=== PATIENT | female | born 1975 | race Caucasian/White ===

== ENCOUNTER 2018-12-10 10:12 | Emergency (ER) | payer BC ==
[~2018-12-10] VITALS: Ht 185.4 cm; Wt 77.1 kg
[2018-12-10 10:36] LABS: ABSOLUTE NEUTROPHILS 3.3 thou/uL (1.4-8.2); BASOPHILS 1.5 % (0.0-2.0); EOSINOPHILS 2.2 % (0.0-3.0); HEMATOCRIT 33.9 % (37.0-47.0); HEMOGLOBIN 11.5 gm/dL (12.0-15.0); LYMPHOCYTES 25.8 % (24.0-44.0); MCH 30.7 pg (26.0-34.0); MCV 90.1 fL (80.0-100.0); MONOCYTES 5.8 % (1.0-8.0); PLATELET COUNT 204 thou/uL (150-400); POLYS 64.7 % (36.0-66.0); RBC 3.77 mil/uL (4.20-5.00); RDW 13.9 % (10.5-14.5); WBC 5.2 thou/uL (4.0-11.0)
[2018-12-10 10:55] LABS: ANION GAP 11 mmol/L (7-16); BUN 10 mg/dL (7-18); CHLORIDE 101 mmol/L (98-107); CO2 26 mmol/L (21-32); CREATININE 0.8 mg/dL (0.6-1.0); GLUCOSE 108 mg/dL (74-106); POTASSIUM 3.6 mmol/L (3.5-5.1); SODIUM 138 mmol/L (136-145)
[2018-12-10 11:04] LABS: ALBUMIN 4.5 g/dL (3.4-5.0); LIPASE 160 U/L (73-393); SGOT 16 U/L (15-37); SGPT 16 U/L (30-65); TOTAL BILIRUBIN 0.3 mg/dL (<0.1-1.0); TOTAL PROTEIN 7.9 g/dL (6.4-8.2); TROPONIN-I <0.06 ng/mL (<0.06)
[2018-12-10 11:23] LABS: URINE BILIRUBIN NEGATIVE (Negative); URINE BLOOD 3+ (Negative); URINE CLARITY CLOUDY; URINE COLOR YELLOW; URINE GLUCOSE-RANDOM* NEGATIVE (Negative); URINE KETONES NEGATIVE (Negative); URINE LEUKOCYTES-REFLEX TRACE (Negative); URINE NITRITE-REFLEX NEGATIVE (Negative); URINE PROTEIN (DIPSTICK) TRACE (Negative); URINE UROBILINOGEN 0.2 E.U./dl (0.2-1.0)
[2018-12-10 11:32] LABS: BACTERIA-REFLEX 1-9 Few /HPF (None Seen); CASTS None Seen /LPF (None Seen); CRYSTALS None Seen /LPF (None Seen); SQUAMOUS 0-3 Few /LPF (0-3); URINE RBC >20 Many /HPF (0-2); URINE WBC-REFLEX 6-15 Few /HPF (0-5)
[2018-12-10] MEDS ORDERED: SYNTHROID25 MC1 PO (11:33)
[2018-12-10 12:52] VITALS: BP 94/67
--- NOTE | 2018-12-10 13:59 | EKG ---
[address] [address] [facility] [place] [address] ELECTROCARDIOGRAM REPORT Name: PAVAN SANTOS [id number] Admission: 12/10/18 Attend Phys: Discharge: 12/10/18 Date of : 75 Report #: [id number] THIS REPORT FOR: //name// [facility] ED Test Date: 2018-12-10 Test Time: 10:25:14 Pat Name: PAVAN SANTOS Department: Room: Gender: F [employer]: [place] : 1975 Requested By: Adrián Albarran Order Number: [id number] MD: Scout Gibson Measurements Intervals [place] Rate: 78 P: [place]: QRS: 54 QRSD: 101 T: -9 QT: 470 QTc: 536 Interpretive Statements Sinus rhythm. Artifact noted in multiple lead, likely motion. No previous ECG available for comparison Electronically Signed On 12-10-2018 13:59:03 MINT MACHINE OPERATOR by Scout Gibson [email or web address] <ELECTRONICALLY SIGNED> By: Scout Gibson MD 12/10/18 1359 1025 1025 MD TANYA Bond
--- NOTE | 2018-12-10 17:09 | EKG ---
[address] [address] [facility] [place] [address] ELECTROCARDIOGRAM REPORT Name: PAVAN SANTOS Room #: [facility] [place])Genia#: [id number] Admission: 12/10/18 Attend Phys: Discharge: 12/10/18 Date of : 75 Report #: [id number] THIS REPORT FOR: //name// [facility] ED Test Date: 2018-12-10 Test Time: 10:40:14 Pat Name: PAVAN SANTOS Department: Room: Gender: F [employer]: [place]AI[place] : 1975 Requested By: Adrián Albarran Order Number: [id number] MD: João Jain Measurements Intervals [place] Rate: 72 P: [place]: QRS: 47 QRSD: 121 T: 26 QT: 436 QTc: 478 Interpretive Statements Sinus rhythm Nonspecific ST segment abnormality Compared to ECG 12/10/2018 10:25:14 No significant change was found Electronically Signed On 12-10-2018 17:08:51 STEELER by João Jain [email or web address] <ELECTRONICALLY SIGNED> By: João Jain MD, [facility] 12/10/18 1708 1040 1040 João Jain MD, FACC /EPI
== END 2018-12-10 12:57 | disposition home or self-care (01) ==
LOC: ER 10:12
PROVIDERS: Physician Assistant
DX: E03.9 Hypothyroidism, unspecified (principal); F41.9 Anxiety disorder, unspecified; R10.13 Epigastric pain

== ENCOUNTER → 2019-01-01 | Outpatient (CLI) | payer BC ==
[~2019-01-01] MED LIST: SYNTHROID25 MC1 PO
== END ==
LOC: ULTRA 08:13
DX: E03.9 Hypothyroidism, unspecified (principal)

== ENCOUNTER → 2021-11-10 | Outpatient (CLI) | payer BC | LOC: BC 11:49 | PROVIDERS: ATTEND Nurse Practitioner | DX: Z12.31 Encounter for screening mammogram for malignant neoplasm of breast (principal) ==